=== PATIENT | female | born 1980 | race African-American/Black ===

== ENCOUNTER 2017-06-06 18:02 | Emergency (ER) | payer BC ==
[~2017-06-06] VITALS: Ht 177.8 cm; Wt 100.0 kg
[~2017-06-06 18:02] MED LIST: DOCU1CAP39 PO; IBUP800 PO; IRON27TA PO; LEVA500T PO; LORTA10 PO
[2017-06-06 18:06] VITALS: BP 162/91; PULSE 93; RESP 17; TEMP 99.5; O2SAT 100
--- NOTE | 2017-06-06 19:06 | PD ---
HPI Chief Complaint: Cold / Flu Symptoms Time Seen by Provider: 18:56 Travel History International Travel<30 days: No Contact w/Intl Traveler<30days: No Traveled to known affect area: No History of Present Illness HPI 37-year-old female presents emergency department for evaluation of cough 1 week. She has taken several [id number] medications with no relief of her symptoms. Yesterday she began having body aches and a severe sore throat. She states nothing is helping with the pain. It is very burning and difficult to swallow secondary to pain. She is able to control her secretions. She her airway has remained patent. Denies any nausea, vomiting, diarrhea. She does not believe she has had any fevers. She has no other symptoms to report at this time. [facility] Past Medical History Medical History: Denies Significant Hx Cancer: No Cardiovascular Problems: No Diabetes: No Endocrine: No Glaucoma: No Genitourinary: No Hepatitis: No Hiatal Hernia: No Hypertension: No Immune Disorder: No Musculoskeletal: No Neurologic: No Psychiatric: No Reproductive: Yes (UTERINE FIBROIDS) Respiratory: No Thyroid Disease: No ?: Not : 2 Para: 1 Miscarriage: 0 : 1 Past Surgical History Abdominal Surgery: Yes (LAPAROSCOPY FOR FIBROIDS) Cardiac Surgery: No Ear Surgery: No Endocrine Surgery: No Eye Surgery: No Genitourinary Surgery: No Gynecologic Surgery: No Hysterectomy: Yes Oral Surgery: Yes (TEETH REMOVED 2006) Pacemaker: No Thoracic Surgery: No Other Surgery: Yes Social History Alcohol Use: Yes Tobacco Use: No Substance Use: No Allergies-Medications (Allergen,Severity, Reaction): Coded Allergies: naproxen (Unverified Allergy, Mild, HIVES, 06/06/17) FACIAL SWELLING Uncoded Allergies: ANTIBIOTIC (Allergy, Unknown, UTD, 06/06/17) Reported Meds & Prescriptions Reported Meds & Active Scripts Active No Active Prescriptions or Reported Medications Review of Systems Except as stated in HPI: all other systems reviewed are Neg Physical Exam Narrative GENERAL: Well-nourished female patient, no acute distress. SKIN: Focused skin assessment warm/dry. HEAD: Atraumatic. Normocephalic. EYES: Pupils equal and round. No scleral icterus. No injection or drainage. ENT: No nasal bleeding or discharge. Pharynx with significant erythema. No significant edema. No exudate. Mucous membranes pink and moist. NECK: Trachea midline. No JVD. No lymphadenopathy CARDIOVASCULAR: Regular rate and rhythm. No murmur appreciated. RESPIRATORY: No accessory muscle use. Clear to auscultation. Breath sounds equal bilaterally. GASTROINTESTINAL: Abdomen soft, non-tender, nondistended. Hepatic and splenic margins not palpable. MUSCULOSKELETAL: No obvious deformities. No clubbing. No cyanosis. No edema. NEUROLOGICAL: Awake and alert. No obvious cranial nerve deficits. Motor grossly within normal limits. Normal speech. PSYCHIATRIC: Appropriate mood and affect; insight and judgment normal. Data Data Last Documented VS Vital Signs Date Time Temp Pulse Resp B/P (MAP) Pulse Ox O2 Delivery O2 Flow Rate FiO2 06/06/17 18:06 99.5 93 17 162/91 (114) 100 Orders Orders Group A Rapid Strep Screen (06/06/17 19:05) Influenzae A/B Antigen (06/06/17 19:05) Dexamethasone Inj (Decadron Inj) (06/06/17 19:15) Strep Culture (Group A) (06/06/17 19:45) Ed Discharge Order (06/06/17 20:29) MDM Medical Decision Making Medical Screen Exam Complete: Yes Emergency Medical Condition: Yes Medical Record Reviewed: Yes Differential Diagnosis Strep pharyngitis versus viral pharyngitis versus influenza versus viral syndrome Narrative Course 37-year-old female presents emergency department for evaluation. Patient appears without distress. Vital signs are stable. Pharynx is erythematous without exudate. Rapid strep screen is negative. Patient is positive for influenza B. Patient will not be started on Tamiflu due to duration of symptoms at this point. She is counseled on care. She is encouraged to follow- up with primary care provider and return immediately with any acute worsening symptoms. Diagnosis Primary Impression: Influenza B Referrals: Primary Care Physician Patient Instructions: General Instructions, Influenza (ED) Departure Forms: Tests/Procedures, Work Release Enter return to work date: Jun 10, 2017 Additional Instructions: Rest Maintain adequate oral hydration Tylenol or ibuprofen as directed on the package as needed for fever and/or pain Follow-up with a primary care provider Return immediately with any acute worsening symptoms Med/Other Pt SpecificInfo: No Change to Meds Scripts No Active Prescriptions or Reported Meds Disposition: 01 DISCHARGE HOME Condition: Stable Claudia Rivera Jun 06, 2017 19:06
[2017-06-06] MEDS ORDERED: DEXAMETHASONE SOD PHOS 20 MG/5 ML VIAL IM ONE (19:15)
== END 2017-06-06 21:07 | disposition home or self-care (01) ==
LOC: NEPD 18:02
DX: J10.1 Influenza due to other identified influenza virus with other respiratory manifestations (principal); R05 Cough; M79.1 Myalgia; R07.0 Pain in throat
CPT/HCPCS: 87081; 87804; 87880; 96372; 99283; J1100